=== PATIENT | female | born 1950 | race Caucasian/White ===

== ENCOUNTER 2016-10-25 07:42 | Day surgery (SDC) | payer MEDICARE, BC ==
[~2016-10-25 07:42] MED LIST: Lactated Ringers 1,000 ML IV SCH
[2016-10-25] MEDS ORDERED: fentaNYL 100 MCG/2 ML SDV ONE (07:49)
[2016-10-25] MEDS ORDERED: Propofol 200 MG/20 ML SDV ONE ×2 (07:49→09:30)
[2016-10-25] MEDS ORDERED: Midazolam 1 MG/ML 2 ML SDV ONE (07:50)
[2016-10-25] MEDS ORDERED: Lactated Ringers 1,000 ML IV SCH (08:30)
[2016-10-25] MEDS ORDERED: Lidocaine 1% 2 ML ONE (09:00)
[2016-10-25 11:07] VITALS: BP 109/80
--- NOTE | 2016-10-28 08:02 | OR ---
DATE OF PROCEDURE: 10/25/2016 PREOPERATIVE DIAGNOSES: 1. History of colon polyps. 2. Abdominal pain. 3. Colitis, last year. POSTOPERATIVE DIAGNOSES: 1. History of colon polyps. 2. Abdominal pain. 3. Colitis, last year. 4. Small colon polyps, 60 cm from anal verge. PROCEDURE PERFORMED: Colonoscopy to the cecum with random colonic biopsies and biopsy resection of polyps 60 cm from the anal verge. ANESTHESIA: IV anesthesia with monitored anesthesia care. INDICATION: This 65-year-old white female was referred for a colonoscopy. She says her last colonoscopic exam was done in 2007, apparently polyp was obtained then. She says last year she was in the hospital with colitis. A colonoscopy has not yet been done. She is now agreeable to this. She also complains of abdominal pain. I counseled her for a colonoscopy with possible biopsy and/or a polypectomy including risks and alternatives, and she gave her informed consent to proceed. DESCRIPTION OF PROCEDURE: The patient was placed in the left lateral decubitus position. IV anesthesia was administered by the Anesthesia Service. Time-out was held. A rectal exam was performed, which was unremarkable. The flexible video Olympus colonoscope was introduced through her anus, up her rectum, and out her colon all the way to the cecum. Once the cecum was reached, the scope was slowly withdrawn examining the mucosa throughout. The mucosa appeared unremarkable. Because of her episode of colitis, we did obtain random colonic biopsies throughout the entire colon. We encountered a small polyp 60 cm from the anal verge which was removed with the biopsy forceps. We attempted to retroflex the scope in the rectum, where it could not be done. The scope was straightened and removed. She tolerated the procedure well. Tony Torres MD /[id number] KYA
== END 2016-10-25 11:05 | disposition home or self-care (01) ==
LOC: JP.SDS 07:42
PROVIDERS: ATTEND Surgery
DX: D12.6 Benign neoplasm of colon, unspecified (principal); K51.00 Ulcerative (chronic) pancolitis without complications; J44.9 Chronic obstructive pulmonary disease, unspecified; I10 Essential (primary) hypertension; E78.5 Hyperlipidemia, unspecified; E11.9 Type 2 diabetes mellitus without complications; Z88.2 Allergy status to sulfonamides; Z88.1 Allergy status to other antibiotic agents; Z88.8 Allergy status to other drugs, medicaments and biological substances; Z86.010 Personal history of colon polyps
CPT/HCPCS: 45380; 82962; 88305; J2250; J2704; J3010

== ENCOUNTER 2016-11-23 13:35 | Inpatient (IN) | payer MEDICARE, BC ==
[2016-11-23] MEDS ORDERED: Albuterol/Ipratropium 3.0-0.5 MG/3 ML Neb Soln NEB ONE (14:07)
--- NOTE | 2016-11-23 14:39 | EDM.PDOC ---
ED HISTORY OF PRESENT ILLNESS - General Chief Complaint: Asthma Stated Complaint: TROUBLE BREATHING, FLUID RETENTION Time Seen by Provider: 11/23/16 14:29 Source: Reports: Patient, RN notes reviewed History Limitations: Reports: No limitations - History of Present Illness INITIAL COMMENTS - FREE TEXT/NARRATIVE: 65-year-old female presents to emergency department a complaint of shortness of breath, she states over the last week or so she's had more weight gain become more short of breath has also developed some wheezing was evaluated by her primary care provider started on metolazone and Lasix, denies any fevers - Related Data Allergies/ADRs: Allergies Allergy/AdvReac Type Severity Reaction Status Date / Time Sulfa (Sulfonamide Allergy Rash Verified 11/23/16 17:29 Antibiotics) amoxicillin trihydrate AdvReac Diarrhea Verified 11/23/16 17:29 [From Augmentin] clindamycin AdvReac Diarrhea Verified 11/23/16 17:29 potassium clavulanate AdvReac Diarrhea Verified 11/23/16 17:29 [From Augmentin] Home Meds: Home Meds Acetaminophen with Codeine [Acetaminophen-Cod #3] 1 - 2 each PO Q6H PRN [History] Albuterol [Ventolin HFA] 2 puff INH Q4H PRN 10/07/13 [History] Gabapentin 1,200 mg PO TID 10/07/13 [History] Lisinopril/Hydrochlorothiazide [Lisinopril-Hctz 10-12.5 mg Tab] 1 each PO DAILY 10/07/13 [History] glipiZIDE [Glipizide ER] 10 mg PO BID 10/07/13 [History] Aspirin [Mervin Chewable Aspirin] 81 mg PO DAILY 10/01/14 [History] Albuterol [Proventil] 1 ampule IH Q4H PRN 12/17/14 [History] Codeine/guaiFENesin [Robitussin AC] 10 ml PO Q6H PRN 09/13/15 [History] Ibuprofen 800 mg PO Q6HR PRN 09/13/15 [History] Tiotropium [Spiriva HandiHaler] 1 cap INH DAILY 09/13/15 [History] Cholecalciferol (Vitamin D3) [Vitamin D3] 2,000 unit PO DAILY 09/14/15 [History] Budesonide [Pulmicort] 2 ml NEB BID 10/17/16 [History] Furosemide [Lasix] 20 mg PO DAILY 10/17/16 [History] Insulin Glargine,Hum.Rec.Anlog [Lantus Solostar] 20 units SUBCUT BEDTIME [History] Lidocaine 5% [Lidoderm 5%] 1 patch TOP Q24H 10/17/16 [History] Omeprazole 40 mg PO DAILY 10/17/16 [History] Pravastatin Sodium [Pravastatin (Pravachol)] 40 mg PO BEDTIME 10/17/16 [History] guaiFENesin [Mucinex] 1,200 mg PO DAILY 10/17/16 [History] Furosemide [Furosemide] 11/23/16 [History] Metolazone [Metolazone] 11/23/16 [History] Past Medical History HEENT History: Reports: Cataract Cardiovascular History: Reports: High cholesterol, Hypertension, SOB on exertion Respiratory History: Reports: Bronchitis, recurrent, COPD, Pneumonia, recurrent , SOB, Other (see below) Other Respiratory History: Uses home O2 at night. Gastrointestinal History: Reports: Colon polyp Genitourinary History: Reports: Other (see below) Other Genitourinary History: stress incontinence [employer] History: Reports: Musculoskeletal History: Reports: Arthritis, Back pain, chronic, Gout Neurological History: Reports: Neuropathy, diabetic, Other (see below) Other Neuro History: low back discs perforated Psychiatric History: Reports: Depression Endocrine/Metabolic History: Reports: Diabetes, type II, Obesity/BMI 30+ Hematologic History: Reports: Anemia Dermatologic History: Reports: Other (see below) Other Dermatologic History: dry skin elbows - Infectious Disease History Infectious Disease History: Reports: Chicken pox - Past Surgical History HEENT Surgical History: Reports: Cataract surgery, Tonsillectomy GI Surgical History: Reports: Colonoscopy Female Surgical History: Reports: Salpingo-oophorectomy, Other (see below) Other Female Surgeries/Procedures: uterine fibroid tumor removed Social & Family History - Family History Family Medical History: Noncontributory GI: Reports: Other (see below) (no family hx of colitis) - Tobacco Use Smoking Status *Q: Current Every Day Smoker Years of Tobacco use: 50 Packs/Tins Daily: 1 Used Tobacco, but Quit: No Month Tobacco Last Used: September Second Hand Smoke Exposure: Yes - Caffeine Use Caffeine Use: Reports: Coffee, Tea - Alcohol Use Days Per Week of Alcohol Use: 0 - Recreational Drug Use Recreational Drug Use: No ED ROS GENERAL - Review of Systems Review Of Systems: See Below Constitutional: Reports: weight gain HEENT: Reports: No symptoms Respiratory: Reports: Shortness of Breath, Wheezing. Denies: Cough, Sputum Cardiovascular: Reports: Dyspnea on exertion, Edema. Denies: Chest pain GI/Abdominal: Reports: Distension : Reports: no symptoms Musculoskeletal: Reports: no symptoms ED EXAM, GENERAL - Physical Exam Exam: See Below Exam Limited By: No limitations General Appearance: alert, WD/WN, no apparent distress Head: atraumatic, normocephalic Neck: normal inspection, supple, non-tender, full range of motion Respiratory/Chest: no respiratory distress, no accessory muscle use, wheezing. No: respiratory distress Cardiovascular: regular rate, rhythm, no rub GI/Abdominal: normal bowel sounds, soft, distended Extremities: pedal edema Course - Vital Signs Last Recorded V/S: Last Vital Signs Temp 98.6 F 11/23/16 14:03 Pulse 82 11/23/16 16:26 Resp 21 H 11/23/16 16:26 BP 111/56 L 11/23/16 16:26 Pulse Ox 92 L 11/23/16 16:26 - Orders/Labs/Meds Orders: Active Orders 24 hr Category Date Time Status Cardiac Monitoring [RC] .As Directed Care 11/23/16 14:35 Active Peripheral IV Care [RC] . DIRECTED Care 11/23/16 16:56 Active RT Aerosol Therapy [RC] ASDIRECTED Care 11/23/16 14:07 Active Abdomen 1V Flat [CR] Stat Exams 11/23/16 14:36 Taken Abdomen Pelvis w Cont [CT] Stat Exams 11/23/16 16:56 Taken Chest 2V [CR] Stat Exams 11/23/16 14:36 Taken Iopamidol [Isovue-300 (61%)] Med 11/23/16 17:22 Active 129 ml IV . DIRECTED PRN Sodium Chloride 0.9% [Normal Saline] 1,000 ml Med 11/23/16 17:00 Active IV ASDIRECTED Sodium Chloride 0.9% [Normal Saline] 79 ml Med 11/23/16 17:30 Active IV ASDIRECTED Sodium Chloride 0.9% [Saline Flush] Med 11/23/16 16:56 Active 10 ml FLUSH ASDIRECTED PRN Sodium Chloride 0.9% [Saline Flush] Med 11/23/16 17:22 Active 10 ml FLUSH ONETIME PRN Peripheral IV Insertion Adult [OM.PC] Urgent Oth 11/23/16 16:56 Ordered Medication Orders Sodium Chloride (Normal Saline) 1,000 mls @ 500 mls/hr IV ASDIRECTED MEGAN Last Admin: 11/23/16 17:52 Dose: 500 mls/hr Sodium Chloride (Normal Saline) 79 mls @ 3.5 mls/sec IV ASDIRECTED MEGAN Last Admin: 11/23/16 17:41 Dose: 3.5 mls/sec Iopamidol (Isovue-300 (61%)) 129 ml IV . DIRECTED PRN PRN Reason: RADIOLOGY EXAM Stop: 11/24/16 17:23 Last Admin: 11/23/16 17:41 Dose: 109 ml Sodium Chloride (Saline Flush) 10 ml FLUSH ASDIRECTED PRN PRN Reason: Keep Vein Open Sodium Chloride (Saline Flush) 10 ml FLUSH ONETIME PRN PRN Reason: per radiology protocol Last Admin: 11/23/16 17:53 Dose: 10 ml Admin: 11/23/16 17:41 Dose: 10 ml Labs: Laboratory Tests 11/23/16 11/23/16 11/23/16 Range/Units 14:54 14:54 14:54 WBC 11.7 H (4.5-11.0) K/uL RBC 4.34 (3.30-5.50) M/uL Hgb 13.4 (12.0-15.0) g/dL Hct 38.9 (36.0-48.0) % MCV 90 (80-98) fL MCH 31 (27-31) pg MCHC 34 (32-36) % Plt Count 242 (150-400) K/uL Neut % (Auto) 66 (36-66) % Lymph % (Auto) 24 (24-44) % [place] % (Auto) 7 H (2-6) % Eos % (Auto) 3 (2-4) % Baso % (Auto) 1 (0-1) % PT (9.5-12.0) sec INR (0.80-1.20) D-Dimer, Quantitative (0.0-400.0) ng/mL Sodium 128 L (140-148) mmol/L Potassium 3.0 L (3.6-5.2) mmol/L Chloride 85 L (100-108) mmol/L Carbon Dioxide 37 H (21-32) mmol/L Anion Gap 9.0 (5.0-14.0) mmol/L BUN 19 H D (7-18) mg/dL Creatinine 0.7 (0.6-1.0) mg/dL Est Cr Clr Drug Dosing 65.40 mL/min Estimated GFR (MDRD) > 60 (>60) Glucose 104 (74-106) mg/dL Lactic Acid 1.0 (0.4-2.0) mmol/L Calcium 8.9 (8.5-10.1) mg/dL Total Bilirubin 0.3 (0.2-1.0) mg/dL AST 21 (15-37) U/L ALT 25 (12-78) U/L Alkaline Phosphatase 88 (46-116) U/L Troponin I < 0.017 (0.000-0.056) ng/mL Ezl-[id number]-[id number] Pept 24 (5-125) pg/mL Total Protein 7.3 (6.4-8.2) g/dL Albumin 3.4 (3.4-5.0) g/dL Globulin 3.9 H (2.3-3.5) g/dL Albumin/Globulin Ratio 0.9 L (1.2-2.2) 11/23/16 11/23/16 Range/Units 16:17 16:55 WBC (4.5-11.0) K/uL RBC (3.30-5.50) M/uL Hgb (12.0-15.0) g/dL Hct (36.0-48.0) % MCV (80-98) fL MCH (27-31) pg MCHC (32-36) % Plt Count (150-400) K/uL Neut % (Auto) (36-66) % Lymph % (Auto) (24-44) % [place] % (Auto) (2-6) % Eos % (Auto) (2-4) % Baso % (Auto) (0-1) % PT 9.3 L (9.5-12.0) sec INR 0.88 (0.80-1.20) D-Dimer, Quantitative 150 (0.0-400.0) ng/mL Sodium (140-148) mmol/L Potassium (3.6-5.2) mmol/L Chloride (100-108) mmol/L Carbon Dioxide (21-32) mmol/L Anion Gap (5.0-14.0) mmol/L BUN (7-18) mg/dL Creatinine (0.6-1.0) mg/dL Est Cr Clr Drug Dosing mL/min Estimated GFR (MDRD) (>60) Glucose (74-106) mg/dL Lactic Acid (0.4-2.0) mmol/L Calcium (8.5-10.1) mg/dL Total Bilirubin (0.2-1.0) mg/dL AST (15-37) U/L ALT (12-78) U/L Alkaline Phosphatase (46-116) U/L Troponin I (0.000-0.056) ng/mL Elg-F-Ncvhbtgmvas Pept (5-125) pg/mL Total Protein (6.4-8.2) g/dL Albumin (3.4-5.0) g/dL Globulin (2.3-3.5) g/dL Albumin/Globulin Ratio (1.2-2.2) Meds: Medications Generic Name Dose Route Start Last Admin Trade Name Freq PRN Reason Stop Dose Admin Sodium Chloride 1,000 mls @ 500 mls/hr 11/23/16 17:00 11/23/16 17:52 Normal Saline IV 500 mls/hr ASDIRECTED MEGAN Administration Sodium Chloride 79 mls @ 3.5 mls/sec 11/23/16 17:30 11/23/16 17:41 Normal Saline IV 3.5 mls/sec ASDIRECTED MEGAN Administration Iopamidol 129 ml 11/23/16 17:22 11/23/16 17:41 Isovue-300 (61%) IV 11/24/16 17:23 109 ml . DIRECTED PRN Administration RADIOLOGY EXAM Sodium Chloride 10 ml 11/23/16 16:56 Saline Flush FLUSH ASDIRECTED PRN Keep Vein Open Sodium Chloride 10 ml 11/23/16 17:22 11/23/16 17:53 Saline Flush FLUSH 10 ml ONETIME PRN Administration per radiology protocol Discontinued Medications Generic Name Dose Route Start Last Admin Trade Name Freq PRN Reason Stop Dose Admin Albuterol/Ipratropium 3 ml 11/23/16 14:07 11/23/16 14:19 Duoneb 3.0-0.5 Mg/3 Ml NEB 11/23/16 14:08 3 ml ONETIME ONE Administration Departure - Departure Time of Disposition: 18:54 Disposition: Admitted As Inpatient 65 Condition: fair Clinical Impression: Hypoxia Forms: ED Department Discharge - My Orders Last 24 Hours: My Active Orders 11/23/16 14:07 RT Aerosol Therapy [RC] ASDIRECTED 11/23/16 14:35 Cardiac Monitoring [RC] .As Directed 11/23/16 14:36 Abdomen 1V Flat [CR] Stat Chest 2V [CR] Stat 11/23/16 16:56 Peripheral IV Care [RC] . DIRECTED Abdomen Pelvis w Cont [CT] Stat Sodium Chloride 0.9% [Saline Flush] 10 ml FLUSH ASDIRECTED PRN Peripheral IV Insertion Adult [OM.PC] Urgent 11/23/16 17:00 Sodium Chloride 0.9% [Normal Saline] 1,000 ml IV ASDIRECTED 11/23/16 17:22 Iopamidol [Isovue-300 (61%)] 129 ml IV . DIRECTED PRN Sodium Chloride 0.9% [Saline Flush] 10 ml FLUSH ONETIME PRN 11/23/16 17:30 Sodium Chloride 0.9% [Normal Saline] 79 ml IV ASDIRECTED - Assessment/Plan Last 24 Hours: My Active Orders 11/23/16 14:07 RT Aerosol Therapy [RC] ASDIRECTED 11/23/16 14:35 Cardiac Monitoring [RC] .As Directed 11/23/16 14:36 Abdomen 1V Flat [CR] Stat Chest 2V [CR] Stat 11/23/16 16:56 Peripheral IV Care [RC] . DIRECTED Abdomen Pelvis w Cont [CT] Stat Sodium Chloride 0.9% [Saline Flush] 10 ml FLUSH ASDIRECTED PRN Peripheral IV Insertion Adult [OM.PC] Urgent 11/23/16 17:00 Sodium Chloride 0.9% [Normal Saline] 1,000 ml IV ASDIRECTED 11/23/16 17:22 Iopamidol [Isovue-300 (61%)] 129 ml IV . DIRECTED PRN Sodium Chloride 0.9% [Saline Flush] 10 ml FLUSH ONETIME PRN 11/23/16 17:30 Sodium Chloride 0.9% [Normal Saline] 79 ml IV ASDIRECTED Plan: Assessment Acuity = acute Site and laterality = hypoxia compensated pH with known history of chronic obstructive pulmonary disease Etiology =unclear etiology Manifestations = dyspnea Location of injury = home Lab values = WBC of 11.7 consistent with leukocytosis INR normal at 0.8 d-dimer normal at 150 sodium low at 128 consistent hyponatremia potassium low at 2.0 consistent hypokalemia troponin within normal limits chest x-ray I did review films myself I cannot appreciate any acute process, the official read from radiology is pending, CT scan of the abdomen shows no acute process however she does have a 9 x 8 cm myoma previously seen Plan discussed case with hospitalist strategic communications specialist he agreed to come and evaluate patient in the ED for admission Patient was in agreement with the plan all questions were answered This note was dictated using [employer] voice recognition software please call with any questions.
[2016-11-23] MEDS ORDERED: Sodium Chloride 0.9% 10 ML Syringe FLUSH PRN (16:56)
[2016-11-23] MEDS ORDERED: Sodium Chloride 0.9% 1,000 ML IV SCH (17:00)
[2016-11-23] MEDS ORDERED: Iopamidol 612 MG/ML 150 ML Bottle IV PRN (17:22)
[2016-11-23] MEDS: Sodium Chloride 0.9% 10 ML Syringe FLUSH PRN ×2 (17:41→17:53)
[2016-11-23] MEDS ORDERED: methylPREDNISolone Sodium Succinate 125 MG/2 ML SDV IVPUSH ONE (19:46)
--- NOTE | 2016-11-23 20:01 | PCM.HP ---
H&P History of Present Illness - General Date of Service: 11/23/16 Admit Problem/Dx: Admission Diagnosis/Problem Admission Diagnosis/Problem Acute exacerbation of chronic obstructive airways disease Source of Information: Patient, Family, Provider History Limitations: Reports: No limitations - History of Present Illness Initial Comments - Free Text/Narative: Zainab presents to the emergency room today with 2 days of progressive shortness of breath. 2 days ago shortness of breath was mild and associated with an increase in her cough as well as a change from clear to yellow sputum. She had subjective fevers and some chills but symptoms were mild so she did not seek medical attention. Yesterday symptoms have progressed to the point that she was short of breath with even minimal exertion but symptoms were not yet severe enough to seek attention. Her cough has increased since that time and her shortness of breath now occurs with anything more than rest. She has not had any difficulties with chest pain. She does think she's been doing some wheezing. She has been using her nebulizer 3 times a day with temporary relief. She normally uses oxygen only at night but has been using it during the day since yesterday morning. Most recent antibiotics were used more than 2 weeks ago and she did feel better after being on antibiotics for bronchitis. She's not aware of any sick contacts. Her blood sugars have been running high with the exception of the last few days where she has not had much to eat. She has noticed persistence of her lower extremity edema despite adjustments in her diuretics. She does not complain of orthopnea or PND but does have a cough when she lays down. Workup in the emergency room has revealed low sodium, low potassium and significant wheezing. His hypoxic with activity and not safe for outpatient management. She'll be admitted for management of bronchitis and a COPD exacerbation. - Related Data Allergies/Adverse Reactions: Allergies Allergy/AdvReac Type Severity Reaction Status Date / Time Sulfa (Sulfonamide Allergy Rash Verified 11/23/16 17:29 Antibiotics) amoxicillin trihydrate AdvReac Diarrhea Verified 11/23/16 17:29 [From Augmentin] clindamycin AdvReac Diarrhea Verified 11/23/16 17:29 potassium clavulanate AdvReac Diarrhea Verified 11/23/16 17:29 [From Augmentin] Home Medications: Home Meds Acetaminophen with Codeine [Acetaminophen-Cod #3] 1 - 2 each PO Q6H PRN [History] Albuterol [Ventolin HFA] 2 puff INH Q4H PRN 10/07/13 [History] Gabapentin 1,200 mg PO TID 10/07/13 [History] Lisinopril/Hydrochlorothiazide [Lisinopril-Hctz 10-12.5 mg Tab] 1 each PO DAILY 10/07/13 [History] glipiZIDE [Glipizide ER] 10 mg PO BID 10/07/13 [History] Aspirin [Mervin Chewable Aspirin] 81 mg PO DAILY 10/01/14 [History] Albuterol [Proventil] 1 ampule IH Q4H PRN 12/17/14 [History] Codeine/guaiFENesin [Robitussin AC] 10 ml PO Q6H PRN 09/13/15 [History] Ibuprofen 800 mg PO Q6HR PRN 09/13/15 [History] Tiotropium [Spiriva HandiHaler] 1 cap INH DAILY 09/13/15 [History] Cholecalciferol (Vitamin D3) [Vitamin D3] 2,000 unit PO DAILY 09/14/15 [History] Budesonide [Pulmicort] 2 ml NEB BID 10/17/16 [History] Furosemide [Lasix] 20 mg PO DAILY 10/17/16 [History] Insulin Glargine,Hum.Rec.Anlog [Lantus Solostar] 20 units SUBCUT BEDTIME [History] Lidocaine 5% [Lidoderm 5%] 1 patch TOP Q24H 10/17/16 [History] Omeprazole 40 mg PO DAILY 10/17/16 [History] Pravastatin Sodium [Pravastatin (Pravachol)] 40 mg PO BEDTIME 10/17/16 [History] guaiFENesin [Mucinex] 1,200 mg PO DAILY 10/17/16 [History] Furosemide [Furosemide] 11/23/16 [History] Metolazone [Metolazone] 11/23/16 [History] Past Medical History HEENT History: Reports: Cataract Cardiovascular History: Reports: High cholesterol, Hypertension, SOB on exertion Respiratory History: Reports: Bronchitis, recurrent, COPD, Pneumonia, recurrent , SOB, Other (see below) Other Respiratory History: Uses home O2 at night. Gastrointestinal History: Reports: Colon polyp Genitourinary History: Reports: Other (see below) Other Genitourinary History: stress incontinence [employer] History: Reports: Musculoskeletal History: Reports: Arthritis, Back pain, chronic, Gout Neurological History: Reports: Neuropathy, diabetic, Other (see below) Other Neuro History: low back discs perforated Psychiatric History: Reports: Depression Endocrine/Metabolic History: Reports: Diabetes, type II, Obesity/BMI 30+ Hematologic History: Reports: Anemia Dermatologic History: Reports: Other (see below) Other Dermatologic History: dry skin elbows - Infectious Disease History Infectious Disease History: Reports: Chicken pox - Past Surgical History HEENT Surgical History: Reports: Cataract surgery, Tonsillectomy GI Surgical History: Reports: Colonoscopy Female Surgical History: Reports: Salpingo-oophorectomy, Other (see below) Other Female Surgeries/Procedures: uterine fibroid tumor removed Social & Family History - Family History Family Medical History: Noncontributory GI: Reports: Other (see below) (no family hx of colitis) - Tobacco Use Smoking Status *Q: Current Every Day Smoker Years of Tobacco use: 50 Packs/Tins Daily: 1 Used Tobacco, but Quit: No Month Tobacco Last Used: September Second Hand Smoke Exposure: Yes - Caffeine Use Caffeine Use: Reports: Coffee, Tea - Alcohol Use Days Per Week of Alcohol Use: 0 - Recreational Drug Use Recreational Drug Use: No H&P Review of Systems - Review of Systems: Review Of Systems: See Below Free Text/Narrative: A complete 12 point review of systems was obtained. Pertinent positives and negatives are noted in the history of present illness. All other systems were reviewed and were negative except as noted. Exam - Exam Exam: See Below - Vital Signs Vital Signs: Last Vital Signs Temp 37.0 C 11/23/16 14:03 Pulse 82 11/23/16 16:26 Resp 21 H 11/23/16 16:26 BP 111/56 L 11/23/16 16:26 Pulse Ox 92 L 11/23/16 16:26 Weight: 84.822 kg - Exam Quality Assessment: supplemental oxygen. No: urinary catheter General: alert, oriented, cooperative, mild distress HEENT: Conjunctiva clear, Normal nasal septum. No: Mucosa moist & pink (dry), Scleral icterus Neck: supple, trachea midline. No: lymphadenopathy, JVD, thyromegaly Lungs: Wheezing (Moderate expiratory wheezing). No: Normal respiratory effort ( Increased work of breathing), Crackles Cardiovascular: regular rate, regular rhythm. No: systolic murmur Abdomen: normal bowel sounds, soft. No: distention, tenderness, mass Back Exam: normal inspection, full range of motion Extremities: normal pulses, edema (Mild pitting ankle edema). No: cyanosis Peripheral Pulses: 2+: dorsalis pedis (L), dorsalis pedis (R) Skin: warm, dry, intact. No: rash Neuro Extensive - Mental Status: alert, oriented x3, nl response to commands Neuro Extensive - Motor, Sensory, Reflexes: CN II-XII intact. No: dysarthria, abnormal motor, tremor Psychiatric: alert, normal affect - Patient Data Lab Results last 24 hrs: Laboratory Results - last 24 hr 11/23/16 11/23/16 11/23/16 Range/Units 14:54 14:54 14:54 WBC 11.7 H (4.5-11.0) K/uL RBC 4.34 (3.30-5.50) M/uL Hgb 13.4 (12.0-15.0) g/dL Hct 38.9 (36.0-48.0) % MCV 90 (80-98) fL MCH 31 (27-31) pg MCHC 34 (32-36) % Plt Count 242 (150-400) K/uL Neut % (Auto) 66 (36-66) % Lymph % (Auto) 24 (24-44) % Wake % (Auto) 7 H (2-6) % Eos % (Auto) 3 (2-4) % Baso % (Auto) 1 (0-1) % PT (9.5-12.0) sec INR (0.80-1.20) D-Dimer, Quantitative (0.0-400.0) ng/mL Sodium 128 L (140-148) mmol/L Potassium 3.0 L (3.6-5.2) mmol/L Chloride 85 L (100-108) mmol/L Carbon Dioxide 37 H (21-32) mmol/L Anion Gap 9.0 (5.0-14.0) mmol/L BUN 19 H D (7-18) mg/dL Creatinine 0.7 (0.6-1.0) mg/dL Est Cr Clr Drug Dosing 65.40 mL/min Estimated GFR (MDRD) > 60 (>60) Glucose 104 (74-106) mg/dL Lactic Acid 1.0 (0.4-2.0) mmol/L Calcium 8.9 (8.5-10.1) mg/dL Total Bilirubin 0.3 (0.2-1.0) mg/dL AST 21 (15-37) U/L ALT 25 (12-78) U/L Alkaline Phosphatase 88 (46-116) U/L Troponin I < 0.017 (0.000-0.056) ng/mL [id number] Pept 24 (5-125) pg/mL Total Protein 7.3 (6.4-8.2) g/dL Albumin 3.4 (3.4-5.0) g/dL Globulin 3.9 H (2.3-3.5) g/dL Albumin/Globulin Ratio 0.9 L (1.2-2.2) 11/23/16 11/23/16 Range/Units 16:17 16:55 WBC (4.5-11.0) K/uL RBC (3.30-5.50) M/uL Hgb (12.0-15.0) g/dL Hct (36.0-48.0) % MCV (80-98) fL MCH (27-31) pg MCHC (32-36) % Plt Count (150-400) K/uL Neut % (Auto) (36-66) % Lymph % (Auto) (24-44) % Wake % (Auto) (2-6) % Eos % (Auto) (2-4) % Baso % (Auto) (0-1) % PT 9.3 L (9.5-12.0) sec INR 0.88 (0.80-1.20) D-Dimer, Quantitative 150 (0.0-400.0) ng/mL Sodium (140-148) mmol/L Potassium (3.6-5.2) mmol/L Chloride (100-108) mmol/L Carbon Dioxide (21-32) mmol/L Anion Gap (5.0-14.0) mmol/L BUN (7-18) mg/dL Creatinine (0.6-1.0) mg/dL Est Cr Clr Drug Dosing mL/min Estimated GFR (MDRD) (>60) Glucose (74-106) mg/dL Lactic Acid (0.4-2.0) mmol/L Calcium (8.5-10.1) mg/dL Total Bilirubin (0.2-1.0) mg/dL AST (15-37) U/L ALT (12-78) U/L Alkaline Phosphatase (46-116) U/L Troponin I (0.000-0.056) ng/mL [id number] Pept (5-125) pg/mL Total Protein (6.4-8.2) g/dL Albumin (3.4-5.0) g/dL Globulin (2.3-3.5) g/dL Albumin/Globulin Ratio (1.2-2.2) Result Diagrams: 11/23/16 14:54 11/23/16 14:54 Imaging Impressions last 24 hrs: Chest x-ray - images personally reviewed - lungs are clear with some hyperinflation. Heart size is normal. No mass, infiltrate or congestive heart failure CT scan of the abdomen and pelvis - 8 x 7 ovoid mass consistent with myoma. No change when compared to previous CT scans *Q Meaningful Use (ADM) - VTE *Q VTE Criteria *Q: - Stroke *Q Stroke Criteria *Q: - AMI *Q AMI Criteria *Q: - Problem List (1) Acute bronchitis SNOMED Code(s): 44743700 ICD Code: J20.9 - ACUTE BRONCHITIS, UNSPECIFIED Status: Acute Current Visit: Yes Qualifiers: Bronchitis organism: unspecified organism Qualified Code(s): J20.9 - Acute bronchitis, unspecified (2) Acute exacerbation of chronic obstructive pulmonary disease SNOMED Code(s): 765832830 ICD Code: J44.1 - CHRONIC OBSTRUCTIVE PULMONARY DISEASE W (ACUTE) EXACERBATION Status: Acute Current Visit: Yes (3) Diabetes mellitus type II, controlled SNOMED Code(s): 97003555 ICD Code: E11.9 - TYPE 2 DIABETES MELLITUS WITHOUT COMPLICATIONS Status: Acute Current Visit: No Qualifiers: Diabetes mellitus complication status: with neurologic complications Diabetes mellitus complication detail: with polyneuropathy Diabetes mellitus residential insulin use: without buttermilk drier operator use Qualified Code(s): E11.42 - Type 2 diabetes mellitus with diabetic polyneuropathy Problem List Initiated/Reviewed/Updated: Yes Orders Last 24hrs: Active Orders 24 hr Category Date Time Status Patient Status Manage Transfer [TRANSFER] Routine ADT 11/23/16 19:47 Ordered Cardiac Monitoring [RC] .As Directed Care 11/23/16 14:35 Active Peripheral IV Care [RC] . DIRECTED Care 11/23/16 16:56 Active RT Aerosol Therapy [RC] ASDIRECTED Care 11/23/16 14:07 Active Abdomen 1V Flat [CR] Stat Exams 11/23/16 14:36 Taken Abdomen Pelvis w Cont [CT] Stat Exams 11/23/16 16:56 Taken Chest 2V [CR] Stat Exams 11/23/16 14:36 Taken Iopamidol [Isovue-300 (61%)] Med 11/23/16 17:22 Active 129 ml IV . DIRECTED PRN Sodium Chloride 0.9% [Normal Saline] 1,000 ml Med 11/23/16 17:00 Active IV ASDIRECTED Sodium Chloride 0.9% [Normal Saline] 79 ml Med 11/23/16 17:30 Active IV ASDIRECTED Sodium Chloride 0.9% [Saline Flush] Med 11/23/16 16:56 Active 10 ml FLUSH ASDIRECTED PRN Sodium Chloride 0.9% [Saline Flush] Med 11/23/16 17:22 Active 10 ml FLUSH ONETIME PRN cefTRIAXone [Rocephin] 2 gm Med 11/23/16 20:00 Active Sodium Chloride 0.9% [Normal Saline] 50 ml IV Q24H Peripheral IV Insertion Adult [OM.PC] Urgent Oth 11/23/16 16:56 Ordered Resuscitation Status Routine Resus Stat 11/23/16 19:50 Ordered Medication Orders Sodium Chloride (Normal Saline) 1,000 mls @ 500 mls/hr IV ASDIRECTED [facility] Last Admin: 11/23/16 17:52 Dose: 500 mls/hr Sodium Chloride (Normal Saline) 79 mls @ 3.5 mls/sec IV ASDIRECTED [facility] Last Admin: 11/23/16 17:41 Dose: 3.5 mls/sec Ceftriaxone Sodium 2 gm/ (Sodium Chloride) 50 mls @ 100 mls/hr IV Q24H [facility] Iopamidol (Isovue-300 (61%)) 129 ml IV . DIRECTED PRN PRN Reason: RADIOLOGY EXAM Stop: 11/24/16 17:23 Last Admin: 11/23/16 17:41 Dose: 109 ml Sodium Chloride (Saline Flush) 10 ml FLUSH ASDIRECTED PRN PRN Reason: Keep Vein Open Sodium Chloride (Saline Flush) 10 ml FLUSH ONETIME PRN PRN Reason: per radiology protocol Last Admin: 11/23/16 17:53 Dose: 10 ml Admin: 11/23/16 17:41 Dose: 10 ml Assessment/Plan Comment:: Assessment and plan - Acute bronchitis with acute exacerbation of COPD - bacterial infection suspected. She has had recent antibiotics so we will utilize a different antibiotic approach. She has not had steroids a month and usually doesn't respond well to these medications but may cause some difficulty with her diabetes. I believe that her mild wheezing is falsely reassuring in that she actually has too much inflammation to move air well enough to cause wheezing. No strong evidence to suspect volume overload. -Ceftriaxone and azithromycin -Solu-Medrol tonight and prednisone starting in the morning -Scheduled and as needed nebulizers -Supplemental oxygen -Continue Pulmicort -Continue tiotropium -Sputum culture if able Insulin-dependent diabetes mellitus - sugars suboptimally controlled recently. Suspect contribution from recent infection and possibly progression of her diabetes. -Levemir 25 units at bedtime -Continue glipizide -Medium dose sliding scale insulin Uterine mass - 8 x 7 cm ovoid mass on the uterus probably a myoma. Previous resection of a fibroid. Hypokalemia - probably related to recent increased diuretic use. -Replace and recheck Maintenance issues - - DVT prophylaxis - enoxaparin - GI prophylaxis - PPI - Nutrition - diabetic diet - Spence catheter - not indicated CODE STATUS - DO NOT RESUSCITATE and DO NOT INTUBATE Admission justification - This patient will be admitted for inpatient services and is medically appropriate meeting medical necessity for inpatient admission as outlined in my documentation. I reasonably expect the patient will require inpatient services that span a period time over 2 midnights. I reasonably expect this patient to be discharged or transferred within 96 hours [facility]. Disposition - anticipate discharge home after the hospital stay Primary care physician - Dr Queenie Estrada M.D.
[2016-11-23] MEDS ORDERED: Acetaminophen/Codeine 300-30 MG Tab PO ONE (20:24)
[2016-11-23] MEDS: cefTRIAXone 2 GM in Sodium Chloride 0.9% 50 ML IV SCH (20:37)
[2016-11-23] MEDS ORDERED: Albuterol 0.083% 2.5 MG/3 ML Neb Soln NEB PRN (21:28)
[2016-11-23] MEDS ORDERED: Benzonatate 100 MG Cap PO PRN (21:28)
[2016-11-23] MEDS ORDERED: Ondansetron 4 MG Tab.DIS PO PRN (21:28)
[2016-11-23] MEDS ORDERED: Acetaminophen 325 MG Tab PO PRN (21:28)
[2016-11-23] MEDS ORDERED: Ibuprofen 800 MG Tab PO PRN (21:28)
[2016-11-23] MEDS ORDERED: Potassium Chloride 20 MEQ Tab.ER PO ONE (21:28)
[2016-11-23] MEDS ORDERED: Azithromycin 500 MG in Sodium Chloride 0.9% 250 ML IV SCH (21:28)
[2016-11-23] MEDS ORDERED: Gabapentin 300 MG Cap PO SCH (21:28)
[2016-11-23] MEDS ORDERED: Polyethylene Glycol 3350 Powder 17 GM Packet PO PRN (21:28)
[2016-11-23] MEDS: Albuterol/Ipratropium 3.0-0.5 MG/3 ML Neb Soln NEB SCH (22:54)
[2016-11-23] MEDS ORDERED: Gabapentin 100 MG Cap ONE (22:55)
[2016-11-23] MEDS ORDERED: Gabapentin 400 MG Cap ONE (22:57)
[2016-11-23] MEDS ORDERED: Lidocaine 5% 700 MG Patch TOP SCH (23:00)
[2016-11-23] MEDS ORDERED: LORazepam 2 MG/ML MDV IVPUSH PRN (23:27)
[2016-11-23] MEDS ORDERED: Insulin Detemir 100 Units/ML 3 ML Pen ONE (23:51)
[2016-11-23] MEDS: glipiZIDE 5 MG Tab.ER PO SCH (23:55)
[2016-11-23] MEDS: Pravastatin 20 MG Tab PO SCH (23:55)
[2016-11-23] MEDS: Insulin Aspart 100 Units/ML 3 ML Pen SUBCUT SCH (23:56)
[2016-11-24] MEDS ORDERED: Potassium Chloride 20 MEQ Tab.ER ONE (00:06)
[2016-11-24] MEDS: Albuterol/Ipratropium 3.0-0.5 MG/3 ML Neb Soln NEB SCH ×4 (07:04→20:52)
[2016-11-24] MEDS ORDERED: predniSONE 20 MG Tab PO SCH (07:30)
[2016-11-24] MEDS: Codeine/guaiFENesin 100mg-10 MG/5 ML Syrup 10 ML Cup PO PRN ×2 (07:43→19:37)
[2016-11-24] MEDS: Insulin Aspart 100 Units/ML 3 ML Pen SUBCUT SCH ×4 (07:45→21:17)
[2016-11-24] MEDS: Tiotropium Inhaler 18 MCG Inhalation Powder Cap Kit of 5 INH SCH (08:35)
[2016-11-24] MEDS: predniSONE 20 MG Tab PO SCH ×2 (08:37→17:55)
[2016-11-24] MEDS: Aspirin 81 MG Tab.Chew PO SCH (08:37)
[2016-11-24] MEDS: Furosemide 40 MG Tab PO SCH (08:37)
[2016-11-24] MEDS: Pantoprazole 40 MG Tab.CR PO SCH (08:37)
[2016-11-24] MEDS: glipiZIDE 5 MG Tab.ER PO SCH ×2 (08:38→20:44)
[2016-11-24] MEDS: Hydrochlorothiazide 12.5 MG Cap PO SCH (08:38)
[2016-11-24] MEDS: guaiFENesin 600 MG Tab.ER PO SCH (08:46)
[2016-11-24] MEDS: Enoxaparin 40 MG/0.4 ML Syringe SUBCUT SCH (08:46)
[2016-11-24] MEDS: Gabapentin 400 MG Cap PO SCH ×2 (08:47→20:43)
[2016-11-24] MEDS: Lisinopril 10 MG Tab PO SCH (08:50)
[2016-11-24] MEDS ORDERED: Lidocaine 5% 700 MG Patch TOP SCH (09:00)
[2016-11-24] MEDS ORDERED: Tiotropium Inhaler 18 MCG Inhalation Powder Cap Kit of 5 INH SCH (09:00)
[2016-11-24] MEDS: Budesonide 0.5 MG/2 ML Neb Susp NEB SCH ×2 (10:43→20:52)
[2016-11-24] MEDS: LORazepam 0.5 MG Tab PO PRN ×2 (11:21→19:25)
[2016-11-24] MEDS: Metoclopramide 5 MG Tab PO SCH ×2 (11:43→16:26)
[2016-11-24] MEDS ORDERED: Insulin Aspart 100 Units/ML 3 ML Pen SUBCUT ONE ×3 (11:53→21:06)
--- NOTE | 2016-11-24 14:34 | PCM.PN ---
- General Info Date of Service: 11/24/16 Functional Status: Reports: pain controlled, tolerating diet - Review of Systems General: Reports: Weakness Pulmonary: Reports: shortness of breath, cough Gastrointestinal: Reports: Other (Abdominal bloating) Systems Review Comment:: Mild difficulty with anxiety overnight but otherwise no acute events. She feels like she is breathing better today but has developed some abdominal bloating after eating breakfast. This is her main concern at this time and feels that is affecting her breathing. No complaints of pain chest fullness and bloating after eating. Still coughing but thinks this is decreasing. Wheezing has resolved. Blood sugars moderately elevated while on the prednisone. - Patient Data Vitals - most recent: Last Vital Signs Temp 36.8 C 11/24/16 10:24 Pulse 92 11/24/16 10:24 Resp 18 11/24/16 10:24 BP 122/67 11/24/16 08:50 Pulse Ox 90 L 11/24/16 10:24 Weight - most recent: 87.09 kg I&O - last 24 hours: Intake & Output 11/23/16 11/24/16 11/24/16 22:59 06:59 14:59 Intake Total 620 480 Output Total 200 1300 1200 Balance -200 -680 -720 Lab Results last 24 hrs: Laboratory Results - last 24 hr 11/24/16 11/24/16 Range/Units 05:39 05:39 WBC 10.3 (4.5-11.0) K/uL RBC 4.43 (3.30-5.50) M/uL Hgb 13.5 (12.0-15.0) g/dL Hct 39.9 (36.0-48.0) % MCV 90 (80-98) fL MCH 31 (27-31) pg MCHC 34 (32-36) % Plt Count 242 (150-400) K/uL Sodium 130 L (140-148) mmol/L Potassium 3.7 (3.6-5.2) mmol/L Chloride 91 L (100-108) mmol/L Carbon Dioxide 34 H (21-32) mmol/L Anion Gap 8.7 (5.0-14.0) mmol/L BUN 16 (7-18) mg/dL Creatinine 0.9 (0.6-1.0) mg/dL Est Cr Clr Drug Dosing 50.86 mL/min Estimated GFR (MDRD) > 60 (>60) Glucose 285 H (74-106) mg/dL Calcium 9.4 (8.5-10.1) mg/dL Eduard Results last 24 hrs: Microbiology 11/23/16 22:35 Gram Stain - Final Mouth - Unspecified Med Orders - Current: Current Medications Acetaminophen (Tylenol) 650 mg PO Q4H PRN PRN Reason: Pain (Mild 1-3)/fever Last Admin: 11/24/16 07:52 Dose: 650 mg Acetaminophen/Codeine Phosphate (Tylenol With Codeine No.3 300mg/30mg) 1 - 2 tab PO Q6H PRN PRN Reason: Pain Albuterol (Proventil Neb Soln) 2.5 mg NEB Q4H PRN PRN Reason: Shortness Of Breath/wheezing Albuterol/Ipratropium (Duoneb 3.0-0.5 Mg/3 Ml) 3 ml NEB QIDRT [facility] Last Admin: 11/24/16 10:43 Dose: 3 ml Aspirin (Aspirin) 81 mg PO DAILY [facility] Last Admin: 11/24/16 08:37 Dose: 81 mg Bacitracin (Bacitracin Oint) 1 gm TOP TID [facility] Benzonatate (Tessalon Perles) 100 mg PO TID PRN PRN Reason: Cough Budesonide (Pulmicort) 0.5 mg NEB BIDRT [facility] Last Admin: 11/24/16 10:43 Dose: 0.5 mg Enoxaparin Sodium (Lovenox) 40 mg SUBCUT DAILY [facility] Last Admin: 11/24/16 08:46 Dose: 40 mg Furosemide (Lasix) 40 mg PO DAILY [facility] Last Admin: 11/24/16 08:37 Dose: 40 mg Gabapentin (Neurontin) 1,200 mg PO BID [facility] Last Admin: 11/24/16 08:47 Dose: 1,200 mg Glipizide (Glucotrol Xl) 10 mg PO BID [facility] Last Admin: 11/24/16 08:38 Dose: 10 mg Guaifenesin (Mucinex) 1,200 mg PO DAILY [facility] Last Admin: 11/24/16 08:46 Dose: 1,200 mg Guaifenesin/Codeine Phosphate (Robitussin Ac) 10 ml PO Q4H PRN PRN Reason: Cough Last Admin: 11/24/16 07:43 Dose: 10 ml Hydrochlorothiazide (Hydrochlorothiazide) 12.5 mg PO DAILY [facility] Last Admin: 11/24/16 08:38 Dose: 12.5 mg Ceftriaxone Sodium 2 gm/ (Sodium Chloride) 50 mls @ 100 mls/hr IV Q24H [facility] Last Admin: 11/23/16 20:37 Dose: 100 mls/hr Azithromycin 500 mg/ Sodium (Chloride) 250 mls @ 250 mls/hr IV Q24H [facility] Insulin Aspart (Novolog) 0 unit SUBCUT QIDACANDBED [facility] PRN Reason: Protocol Insulin Detemir (Levemir) 30 unit SUBCUT BEDTIME [facility] Lidocaine (Lidoderm 5%) 700 mg TOP BEDTIME [facility] Lisinopril (Prinivil) 10 mg PO DAILY [facility] Last Admin: 11/24/16 08:50 Dose: 10 mg Lorazepam (Ativan) 0.5 mg PO Q4H PRN PRN Reason: Anxiety Last Admin: 11/24/16 11:21 Dose: 0.5 mg Metoclopramide HCl (Reglan) 5 mg PO TIDAC [facility] Last Admin: 11/24/16 11:43 Dose: 5 mg Miscellaneous Information (Remove Patch) 1 ea TRDERM DAILY [facility] Last Admin: 11/24/16 08:51 Dose: Not Given Ondansetron HCl (Zofran Odt) 4 mg PO Q6H PRN PRN Reason: Nausea able to take PO Pantoprazole Sodium (Protonix) 40 mg PO ACBREAKFAST [facility] Last Admin: 11/24/16 08:37 Dose: 40 mg Polyethylene Glycol (Miralax) 17 gm PO DAILY PRN PRN Reason: Constipation Pravastatin Sodium (Pravachol) 40 mg PO BEDTIME [facility] Last Admin: 11/23/16 23:55 Dose: 40 mg Prednisone (Prednisone) 20 mg PO BIDMEALS [facility] Last Admin: 11/24/16 08:37 Dose: 20 mg Sodium Chloride (Saline Flush) 10 ml FLUSH ASDIRECTED PRN PRN Reason: Keep Vein Open Tiotropium Mouthcard (Spiriva Handihaler) 18 mcg INH DAILYRT [facility] Last Admin: 11/24/16 08:35 Dose: 18 mcg Discontinued Medications Acetaminophen/Codeine Phosphate (Tylenol With Codeine No.3 300mg/30mg) 1 tab PO ONETIME ONE Stop: 11/23/16 20:25 Last Admin: 11/23/16 20:37 Dose: 1 tab Albuterol/Ipratropium (Duoneb 3.0-0.5 Mg/3 Ml) 3 ml NEB ONETIME ONE Stop: 11/23/16 14:08 Last Admin: 11/23/16 14:19 Dose: 3 ml Budesonide (Pulmicort) 0.5 mg NEB BIDRT [facility] Gabapentin (Neurontin) 1,200 mg PO BID [facility] Last Admin: 11/23/16 23:02 Dose: 1,200 mg Gabapentin (Neurontin) Confirm Administered Dose 300 mg .ROUTE .STK-MED ONE Stop: 11/23/16 22:56 Last Admin: 11/23/16 23:18 Dose: Not Given Gabapentin (Neurontin) Confirm Administered Dose 1,200 mg .ROUTE .STK-MED ONE Stop: 11/23/16 22:58 Last Admin: 11/23/16 23:21 Dose: Not Given Sodium Chloride (Normal Saline) 1,000 mls @ 500 mls/hr IV ASDIRECTED [facility] Last Admin: 11/23/16 17:52 Dose: 500 mls/hr Sodium Chloride (Normal Saline) 79 mls @ 3.5 mls/sec IV ASDIRECTED [facility] Last Admin: 11/23/16 17:41 Dose: 3.5 mls/sec Azithromycin 500 mg/ Sodium (Chloride) 250 mls @ 250 mls/hr IV Q24H [facility] Last Admin: 11/23/16 22:54 Dose: 250 mls/hr Insulin Aspart (Novolog) 0 unit SUBCUT QIDACANDBED [facility] PRN Reason: Protocol Last Admin: 11/24/16 12:12 Dose: Not Given Insulin Aspart (Novolog) 15 unit SUBCUT ONETIME ONE Stop: 11/24/16 11:54 Last Admin: 11/24/16 12:11 Dose: 15 unit Insulin Detemir (Levemir) 0 unit SUBCUT BEDTIME [facility] Last Admin: 11/24/16 00:00 Dose: 25 units Insulin Detemir (Levemir) Confirm Administered Dose 300 unit .ROUTE .STK-MED ONE Stop: 11/23/16 23:52 Last Admin: 11/23/16 23:57 Dose: Not Given Insulin Detemir (Levemir) 25 unit SUBCUT BEDTIME [facility] Iopamidol (Isovue-300 (61%)) 129 ml IV . DIRECTED PRN PRN Reason: RADIOLOGY EXAM Stop: 11/24/16 17:23 Last Admin: 11/23/16 17:41 Dose: 109 ml Lidocaine (Lidoderm 5%) 700 mg TOP Q24H [facility] Last Admin: 11/24/16 00:24 Dose: Not Given Lidocaine (Lidoderm 5%) 700 mg TOP DAILY [facility] Lorazepam (Ativan) 0.5 mg IVPUSH Q4H PRN PRN Reason: Anxiety Last Admin: 11/23/16 23:39 Dose: 0.5 mg Methylprednisolone Sodium Succinate (Solu-Medrol) 125 mg IVPUSH ONETIME ONE Stop: 11/23/16 19:47 Last Admin: 11/23/16 20:37 Dose: 125 mg Miscellaneous Information (Remove Patch) 1 ea TRDERM DAILY@2000 [facility] Miscellaneous Information (Remove Patch) 1 ea TRDERM BEDTIME [facility] Potassium Chloride (Klor-Con M20) 40 meq PO ONETIME ONE Stop: 11/23/16 21:29 Last Admin: 11/24/16 00:06 Dose: 40 meq Potassium Chloride (Klor-Con M20) Confirm Administered Dose 40 meq .ROUTE .STK- MED ONE Stop: 11/24/16 00:07 Last Admin: 11/24/16 00:21 Dose: Not Given Sodium Chloride (Saline Flush) 10 ml FLUSH ONETIME PRN PRN Reason: per radiology protocol Last Admin: 11/23/16 17:53 Dose: 10 ml - Exam Quality Assessment: supplemental oxygen General: alert, oriented, cooperative, mild distress Neck: supple Lungs: Clear to auscultation, Normal respiratory effort, Other (Prolonged expiratory phase) Cardiovascular: Regular Rate, Regular Rhythm Abdomen: bowel sounds present, soft, no tenderness, distension (Mild) Extremities: no edema, no cyanosis Skin: warm, dry, rash (Small area of healing excoriation left buttocks) Psy/Mental Status: alert, normal affect - Problem List & Annotations (1) Acute bronchitis SNOMED Code(s): 59780360 Code(s): J20.9 - ACUTE BRONCHITIS, UNSPECIFIED Status: Acute Current Visit: Yes Qualifiers: Bronchitis organism: unspecified organism Qualified Code(s): J20.9 - Acute bronchitis, unspecified (2) Acute exacerbation of chronic obstructive pulmonary disease SNOMED Code(s): 415311194 Code(s): J44.1 - CHRONIC OBSTRUCTIVE PULMONARY DISEASE W (ACUTE) EXACERBATION Status: Acute Current Visit: Yes (3) Diabetes mellitus type II, controlled SNOMED Code(s): 09005609 Code(s): E11.9 - TYPE 2 DIABETES MELLITUS WITHOUT COMPLICATIONS Status: Acute Current Visit: No Qualifiers: Diabetes mellitus complication status: with neurologic complications Diabetes mellitus complication detail: with polyneuropathy Diabetes mellitus prison insulin use: without termite exterminator use Qualified Code(s): E11.42 - Type 2 diabetes mellitus with diabetic polyneuropathy - Problem List Review Problem List Initiated/Reviewed/Updated: Yes - My Orders Last 24 Hours: My Active Orders 11/23/16 19:50 Resuscitation Status Routine 11/23/16 21:04 Pressure Reduction Mattress [OM.PC] Routine 11/23/16 21:28 Patient Status [ADT] Routine Diabetes Education [RC] Click to Edit Intake and Output [RC] QSHIFT Notify Provider Vital Signs [RC] ASDIRECTED Notify Provider [RC] PRN Oxygen Therapy [RC] PRN Pulse Oximetry [RC] CONTINUOUS RT Aerosol Therapy [RC] ASDIRECTED Up With Assistance [RC] ASDIRECTED VTE/DVT Education [RC] Per Unit Routine Vital Signs [RC] Q4H Acetaminophen [Tylenol] 650 mg PO Q4H PRN Albuterol [Proventil Neb Soln] 2.5 mg NEB Q4H PRN Benzonatate [Tessalon Perles] 100 mg PO TID PRN Codeine/guaiFENesin [Robitussin AC] 10 ml PO Q4H PRN Ondansetron [Zofran ODT] 4 mg PO Q6H PRN Polyethylene Glycol 3350 [MiraLAX] 17 gm PO DAILY PRN TATA Hose [Antiembolic Hose] [OM.PC] Routine 11/23/16 22:00 Albuterol/Ipratropium [DuoNeb 3.0-0.5 MG/3 ML] 3 ml NEB QIDRT 11/23/16 22:35 CULTURE RESPIRATORY + SMEAR [RM] Routine 11/23/16 22:43 Accu Check [Blood Glucose Check, Bedside] [RC] QIDACANDBED 11/23/16 23:26 Accu Check [Blood Glucose Check, Bedside] [RC] ONETIME 11/24/16 07:30 Pantoprazole [ProTONIX] 40 mg PO ACBREAKFAST 11/24/16 08:15 Tiotropium [Spiriva HandiHaler] 18 mcg INH DAILYRT 11/24/16 08:30 predniSONE 20 mg PO BIDMEALS 11/24/16 09:00 Enoxaparin [Lovenox] 40 mg SUBCUT DAILY Gabapentin [Neurontin] 1,200 mg PO BID Hydrochlorothiazide 12.5 mg PO DAILY Remove Patch 1 ea TRDERM DAILY 11/24/16 11:00 Budesonide [Pulmicort] 0.5 mg NEB BIDRT 11/24/16 11:14 LORazepam [Ativan] 0.5 mg PO Q4H PRN 11/24/16 11:30 Metoclopramide [Reglan] 5 mg PO TIDAC 11/24/16 14:33 Consult to Watch Electrician [CONS] Routine 11/24/16 15:00 Bacitracin [Bacitracin Oint] 1 gm TOP TID 11/24/16 16:30 GLUCOSE POC LAB TO COLLECT [POC] QIDACANDBED 11/24/16 17:00 Insulin Aspart [NovoLOG] See Protocol SUBCUT QIDACANDBED 11/24/16 21:00 GLUCOSE POC LAB TO COLLECT [POC] QIDACANDBED Azithromycin [Zithromax] 500 mg Sodium Chloride 0.9% [Normal Saline] 250 ml IV Q24H Insulin Detemir [Levemir] 30 unit SUBCUT BEDTIME Lidocaine 5% [Lidoderm 5%] 700 mg TOP BEDTIME 11/24/16 Dinner NPO After Midnight [Nothing per Oral After Midnight Diet] [DIET] 11/25/16 07:00 Gastric Empty Study [NM] Routine 11/25/16 07:30 GLUCOSE POC LAB TO COLLECT [POC] QIDACANDBED 11/25/16 11:30 GLUCOSE POC LAB TO COLLECT [POC] QIDACANDBED 11/25/16 16:30 GLUCOSE POC LAB TO COLLECT [POC] QIDACANDBED 11/25/16 21:00 GLUCOSE POC LAB TO COLLECT [POC] QIDACANDBED 11/26/16 07:30 GLUCOSE POC LAB TO COLLECT [POC] QIDACANDBED 11/26/16 11:30 GLUCOSE POC LAB TO COLLECT [POC] QIDACANDBED 11/26/16 16:30 GLUCOSE POC LAB TO COLLECT [POC] QIDACANDBED 11/26/16 21:00 GLUCOSE POC LAB TO COLLECT [POC] QIDACANDBED 11/27/16 07:30 GLUCOSE POC LAB TO COLLECT [POC] QIDACANDBED 11/27/16 11:30 GLUCOSE POC LAB TO COLLECT [POC] QIDACANDBED 11/27/16 16:30 GLUCOSE POC LAB TO COLLECT [POC] QIDACANDBED 11/27/16 21:00 GLUCOSE POC LAB TO COLLECT [POC] QIDACANDBED 11/28/16 07:30 GLUCOSE POC LAB TO COLLECT [POC] QIDACANDBED 11/28/16 11:30 GLUCOSE POC LAB TO COLLECT [POC] QIDACANDBED 11/28/16 16:30 GLUCOSE POC LAB TO COLLECT [POC] QIDACANDBED 11/28/16 21:00 GLUCOSE POC LAB TO COLLECT [POC] QIDACANDBED 11/29/16 07:30 GLUCOSE POC LAB TO COLLECT [POC] QIDACANDBED 11/29/16 11:30 GLUCOSE POC LAB TO COLLECT [POC] QIDACANDBED - Plan Plan:: Assessment and plan - Acute bronchitis with acute exacerbation of COPD - bacterial infection suspected and Gram stain showed numerous gram-positive cocci. Identification is pending at this point. Clinically improving with current antibiotics and steroids. -Ceftriaxone and azithromycin -Continue twice daily prednisone -Scheduled and as needed nebulizers -Supplemental oxygen -Continue Pulmicort -Continue tiotropium -Followup sputum culture Postprandial abdominal bloating - gastroparesis suspected with long-standing diabetes. Gastritis could be considered as well. Previous gallbladder workup was unremarkable but could also be considered. -Trial of metoclopramide -Gastric emptying study in the morning Insulin-dependent diabetes mellitus - sugars suboptimally controlled recently and worse now with initiation of steroids. -Levemir 30 units at bedtime -Continue glipizide -high dose sliding scale insulin Uterine mass - 8 x 7 cm ovoid mass on the uterus probably a myoma. Previous resection of a fibroid. Hypokalemia - probably related to recent increased diuretic use. Level improved today. -Labs in the morning Maintenance issues - - DVT prophylaxis - enoxaparin - GI prophylaxis - PPI - Nutrition - diabetic diet - Spence catheter - not indicated CODE STATUS - DO NOT INTUBATE but patient is agreeable to have a short trial of CPR if needed but does not want prolonged efforts Disposition - anticipate discharge home after the hospital stay Primary care physician - Dr Queenie Estrada M.D.
[2016-11-24] MEDS: Acetaminophen/Codeine 300-30 MG Tab PO PRN (15:18)
[2016-11-24] MEDS: Bacitracin Oint 28.35 GM Tube TOP SCH ×2 (16:30→21:18)
[2016-11-24] MEDS: Pravastatin 20 MG Tab PO SCH (20:44)
[2016-11-24] MEDS: Lidocaine 5% 700 MG Patch TOP SCH (20:44)
[2016-11-24] MEDS: cefTRIAXone 2 GM in Sodium Chloride 0.9% 50 ML IV SCH (20:52)
[2016-11-24] MEDS ORDERED: Insulin Detemir 100 Units/ML 3 ML Pen SUBCUT SCH ×2 (21:00)
--- NOTE | 2016-11-24 21:16 | PCM.SN ---
- Free Text/Narrative Note: time: 2103 ; call from [address] [place] [address] ; blood glucose 420 a; hyperglycemia p Insulin Novolog 15 units subcut now. continue present plan of care.
[2016-11-24] MEDS: Insulin Detemir 100 Units/ML 3 ML Pen SUBCUT SCH (21:20)
[2016-11-24] MEDS: Azithromycin 500 MG in Sodium Chloride 0.9% 250 ML IV SCH (21:28)
[2016-11-24] MEDS ORDERED: Budesonide 0.5 MG/2 ML Neb Susp NEB SCH (23:30)
[2016-11-25] MEDS: Albuterol/Ipratropium 3.0-0.5 MG/3 ML Neb Soln NEB SCH ×4 (07:10→20:22)
[2016-11-25] MEDS: Budesonide 0.5 MG/2 ML Neb Susp NEB SCH ×2 (07:11→20:26)
[2016-11-25] MEDS: Tiotropium Inhaler 18 MCG Inhalation Powder Cap Kit of 5 INH SCH (07:12)
--- NOTE | 2016-11-25 08:49 | CR ---
Chest 2V HISTORY: Chest Pain COMPARISON: 11/09/2010 FINDINGS: Probable mild linear atelectasis is noted left lung base. Lungs appear clear and normally aerated. C ardiomediastinal silhouette is within normal limits. No vascular redistribution or pleural fluid can be seen. Bony structures and soft tissues are unremarkable. IMPRESSION: Possible very mild linear atelectasis left lung base. No other acute chest abnormality is identified .
--- NOTE | 2016-11-25 08:50 | CR ---
Abdomen 1V Flat HISTORY: distention FINDINGS: Bowel gas pattern is nonspecific. No obstruction or free air is identified. No soft tissue mass, org anomegaly, or abnormal calcifications are seen. Bony structures demonstrate mild degenerative and hy pertrophic changes along the lumbar spine with slight scoliosis convex to the left. IMPRESSION: Nonspecific abdomen.
[2016-11-25] MEDS: Insulin Aspart 100 Units/ML 3 ML Pen SUBCUT SCH ×4 (08:59→21:00)
[2016-11-25] MEDS: Bacitracin Oint 28.35 GM Tube TOP SCH ×3 (09:00→20:27)
[2016-11-25] MEDS: Enoxaparin 40 MG/0.4 ML Syringe SUBCUT SCH (09:01)
[2016-11-25] MEDS: Pantoprazole 40 MG Tab.CR PO SCH (12:13)
[2016-11-25] MEDS: glipiZIDE 5 MG Tab.ER PO SCH ×2 (12:14→20:23)
[2016-11-25] MEDS: Hydrochlorothiazide 12.5 MG Cap PO SCH (12:14)
[2016-11-25] MEDS: Aspirin 81 MG Tab.Chew PO SCH (12:14)
[2016-11-25] MEDS: predniSONE 20 MG Tab PO SCH ×2 (12:14→17:55)
[2016-11-25] MEDS: Metoclopramide 5 MG Tab PO SCH ×3 (12:15→17:47)
[2016-11-25] MEDS: Furosemide 40 MG Tab PO SCH (12:15)
[2016-11-25] MEDS: Lisinopril 10 MG Tab PO SCH (12:16)
[2016-11-25] MEDS: guaiFENesin 600 MG Tab.ER PO SCH (12:16)
[2016-11-25] MEDS: Gabapentin 400 MG Cap PO SCH ×2 (12:16→20:23)
--- NOTE | 2016-11-25 14:23 | NM ---
Gastric Empty Study HISTORY: post-prandial bloating and pain, hx diabetes Gastric emptying study was obtained following oral administration of 1.03 mCi of technetium 90 9M galeas lfur colloid mixed with a standard meal of 2 scrambled eggs, 2 pieces of toast, and 60 mL of water. FINDINGS: Radiotracer activity in the stomach increases from baseline at 1, 2, and 3 hours. Activity decreases back to baseline at 4 hours. There is no significant gastric emptying during the exam. IMPRESSION: Prominent gastric retention with no significant gastric emptying observed during this ex am.
[2016-11-25] MEDS: Codeine/guaiFENesin 100mg-10 MG/5 ML Syrup 10 ML Cup PO PRN (14:35)
[2016-11-25] MEDS: Acetaminophen/Codeine 300-30 MG Tab PO PRN (14:57)
[2016-11-25] MEDS: Lidocaine 5% 700 MG Patch TOP SCH ×2 (17:49→20:23)
--- NOTE | 2016-11-25 18:14 | PCM.PN ---
- General Info Date of Service: 11/25/16 Functional Status: Reports: pain controlled, tolerating diet, ambulating, urinating - Review of Systems General: Denies: Fever, Chills Pulmonary: Reports: shortness of breath. Denies: pleuritic chest pain, cough, sputum, hemoptysis, wheezing Cardiovascular: Reports: Dyspnea on Exertion. Denies: Chest Pain, Palpitations , Orthopnea, PND, Edema, Lightheadedness Gastrointestinal: Reports: Abdominal pain. Denies: Difficulty swallowing, Nausea, Vomiting Systems Review Comment:: This patient is a 65-year-old woman who was admitted because of increased shortness of breath and hypoxia. Since admission her breathing has improved although she still has symptoms of shortness of breath with activity. After admission also reported abdominal distention and bloating with eating, GI motility scan was obtained today and shows evidence of significant gastroparesis. I discussed with her options concerning management including dietary modifications and use of Reglan. She would like to consider medical therapy overnight and we'll discuss it again in the morning. - Patient Data Vitals - most recent: Last Vital Signs Temp 98.0 F 11/25/16 15:00 Pulse 90 11/25/16 15:00 Resp 18 11/25/16 15:00 BP 109/64 11/25/16 15:00 Pulse Ox 92 L 11/25/16 15:00 Weight - most recent: 192 lb I&O - last 24 hours: Intake & Output 11/25/16 11/25/16 11/25/16 06:59 14:59 22:59 Intake Total 1000 240 Output Total 1900 Balance 1000 -1660 Eduard Results last 24 hrs: Microbiology 11/23/16 22:35 Gram Stain - Final Mouth - Unspecified Respiratory Culture - Preliminary NORMAL RESPIRATORY NUNO 1 DAY Med Orders - Current: Current Medications Acetaminophen (Tylenol) 650 mg PO Q4H PRN PRN Reason: Pain (Mild 1-3)/fever Last Admin: 11/24/16 07:52 Dose: 650 mg Acetaminophen/Codeine Phosphate (Tylenol With Codeine No.3 300mg/30mg) 1 - 2 tab PO Q6H PRN PRN Reason: Pain Last Admin: 11/25/16 14:57 Dose: 2 tab Albuterol (Proventil Neb Soln) 2.5 mg NEB Q4H PRN PRN Reason: Shortness Of Breath/wheezing Albuterol/Ipratropium (Duoneb 3.0-0.5 Mg/3 Ml) 3 ml NEB QIDRT [facility] Last Admin: 11/25/16 14:44 Dose: 3 ml Aspirin (Aspirin) 81 mg PO DAILY [facility] Last Admin: 11/25/16 12:14 Dose: 81 mg Bacitracin (Bacitracin Oint) 1 gm TOP TID [facility] Last Admin: 11/25/16 14:38 Dose: 1 applic Benzonatate (Tessalon Perles) 100 mg PO TID PRN PRN Reason: Cough Budesonide (Pulmicort) 0.5 mg NEB BIDRT [facility] Last Admin: 11/25/16 07:11 Dose: 0.5 mg Enoxaparin Sodium (Lovenox) 40 mg SUBCUT DAILY [facility] Last Admin: 11/25/16 09:01 Dose: 40 mg Furosemide (Lasix) 40 mg PO DAILY [facility] Last Admin: 11/25/16 12:15 Dose: 40 mg Gabapentin (Neurontin) 1,200 mg PO BID [facility] Last Admin: 11/25/16 12:16 Dose: 1,200 mg Glipizide (Glucotrol Xl) 10 mg PO BID [facility] Last Admin: 11/25/16 12:14 Dose: 10 mg Guaifenesin (Mucinex) 1,200 mg PO DAILY [facility] Last Admin: 11/25/16 12:16 Dose: 1,200 mg Guaifenesin/Codeine Phosphate (Robitussin Ac) 10 ml PO Q4H PRN PRN Reason: Cough Last Admin: 11/25/16 14:35 Dose: 10 ml Hydrochlorothiazide (Hydrochlorothiazide) 12.5 mg PO DAILY [facility] Last Admin: 11/25/16 12:14 Dose: 12.5 mg Ceftriaxone Sodium 2 gm/ (Sodium Chloride) 50 mls @ 100 mls/hr IV Q24H [facility] Last Admin: 11/24/16 20:52 Dose: 100 mls/hr Azithromycin 500 mg/ Sodium (Chloride) 250 mls @ 250 mls/hr IV Q24H [facility] Last Admin: 11/24/16 21:28 Dose: 250 mls/hr Insulin Aspart (Novolog) 0 unit SUBCUT QIDACANDBED [facility] PRN Reason: Protocol Last Admin: 11/25/16 17:55 Dose: 12 units Insulin Detemir (Levemir) 35 unit SUBCUT BEDTIME [facility] Last Admin: 11/24/16 21:20 Dose: 35 units Lidocaine (Lidoderm 5%) 700 mg TOP BEDTIME [facility] Last Admin: 11/25/16 17:49 Dose: 700 mg Lisinopril (Prinivil) 10 mg PO DAILY [facility] Last Admin: 11/25/16 12:16 Dose: 10 mg Lorazepam (Ativan) 0.5 mg PO Q4H PRN PRN Reason: Anxiety Last Admin: 11/24/16 19:25 Dose: 0.5 mg Miscellaneous Information (Remove Patch) 1 ea TRDERM DAILY [facility] Last Admin: 11/25/16 12:17 Dose: Not Given Ondansetron HCl (Zofran Odt) 4 mg PO Q6H PRN PRN Reason: Nausea able to take PO Pantoprazole Sodium (Protonix) 40 mg PO ACBREAKFAST [facility] Last Admin: 11/25/16 12:13 Dose: 40 mg Polyethylene Glycol (Miralax) 17 gm PO DAILY PRN PRN Reason: Constipation Pravastatin Sodium (Pravachol) 40 mg PO BEDTIME [facility] Last Admin: 11/24/16 20:44 Dose: 40 mg Prednisone (Prednisone) 20 mg PO BIDMEALS [facility] Last Admin: 11/25/16 17:55 Dose: 20 mg Sodium Chloride (Saline Flush) 10 ml FLUSH ASDIRECTED PRN PRN Reason: Keep Vein Open Tiotropium [place] (Spiriva Handihaler) 18 mcg INH DAILYRT [facility] Last Admin: 11/25/16 07:12 Dose: 18 mcg Discontinued Medications Acetaminophen/Codeine Phosphate (Tylenol With Codeine No.3 300mg/30mg) 1 tab PO ONETIME ONE Stop: 11/23/16 20:25 Last Admin: 11/23/16 20:37 Dose: 1 tab Albuterol/Ipratropium (Duoneb 3.0-0.5 Mg/3 Ml) 3 ml NEB ONETIME ONE Stop: 11/23/16 14:08 Last Admin: 11/23/16 14:19 Dose: 3 ml Budesonide (Pulmicort) 0.5 mg NEB BIDRT [facility] Gabapentin (Neurontin) 1,200 mg PO BID [facility] Last Admin: 11/23/16 23:02 Dose: 1,200 mg Gabapentin (Neurontin) Confirm Administered Dose 300 mg .ROUTE .STK-MED ONE Stop: 11/23/16 22:56 Last Admin: 11/23/16 23:18 Dose: Not Given Gabapentin (Neurontin) Confirm Administered Dose 1,200 mg .ROUTE .STK-MED ONE Stop: 11/23/16 22:58 Last Admin: 11/23/16 23:21 Dose: Not Given Sodium Chloride (Normal Saline) 1,000 mls @ 500 mls/hr IV ASDIRECTED [facility] Last Admin: 11/23/16 17:52 Dose: 500 mls/hr Sodium Chloride (Normal Saline) 79 mls @ 3.5 mls/sec IV ASDIRECTED [facility] Last Admin: 11/23/16 17:41 Dose: 3.5 mls/sec Azithromycin 500 mg/ Sodium (Chloride) 250 mls @ 250 mls/hr IV Q24H [facility] Last Admin: 11/23/16 22:54 Dose: 250 mls/hr Insulin Aspart (Novolog) 0 unit SUBCUT QIDACANDBED [facility] PRN Reason: Protocol Last Admin: 11/24/16 12:12 Dose: Not Given Insulin Aspart (Novolog) 15 unit SUBCUT ONETIME ONE Stop: 11/24/16 11:54 Last Admin: 11/24/16 12:11 Dose: 15 unit Insulin Aspart (Novolog) 20 unit SUBCUT ONETIME ONE Stop: 11/24/16 16:31 Last Admin: 11/24/16 16:23 Dose: 20 unit Insulin Aspart (Novolog) 0 unit SUBCUT ONETIME ONE Stop: 11/24/16 21:07 Last Admin: 11/24/16 21:21 Dose: 15 units Insulin Detemir (Levemir) 0 unit SUBCUT BEDTIME [facility] Last Admin: 11/24/16 00:00 Dose: 25 units Insulin Detemir (Levemir) Confirm Administered Dose 300 unit .ROUTE .STK-MED ONE Stop: 11/23/16 23:52 Last Admin: 11/23/16 23:57 Dose: Not Given Iopamidol (Isovue-300 (61%)) 129 ml IV . DIRECTED PRN PRN Reason: RADIOLOGY EXAM Stop: 11/24/16 17:23 Last Admin: 11/23/16 17:41 Dose: 109 ml Lidocaine (Lidoderm 5%) 700 mg TOP Q24H [facility] Last Admin: 11/24/16 00:24 Dose: Not Given Lidocaine (Lidoderm 5%) 700 mg TOP DAILY [facility] Lorazepam (Ativan) 0.5 mg IVPUSH Q4H PRN PRN Reason: Anxiety Last Admin: 11/23/16 23:39 Dose: 0.5 mg Methylprednisolone Sodium Succinate (Solu-Medrol) 125 mg IVPUSH ONETIME ONE Stop: 11/23/16 19:47 Last Admin: 11/23/16 20:37 Dose: 125 mg Metoclopramide HCl (Reglan) 5 mg PO TIDAC [facility] Last Admin: 11/25/16 17:47 Dose: 5 mg Miscellaneous Information (Remove Patch) 1 ea TRDERM DAILY@1999 [facility] Miscellaneous Information (Remove Patch) 1 ea TRDERM BEDTIME [facility] Potassium Chloride (Klor-Con M20) 40 meq PO ONETIME ONE Stop: 11/23/16 21:29 Last Admin: 11/24/16 00:06 Dose: 40 meq Potassium Chloride (Klor-Con M20) Confirm Administered Dose 40 meq .ROUTE .STK- MED ONE Stop: 11/24/16 00:07 Last Admin: 11/24/16 00:21 Dose: Not Given Sodium Chloride (Saline Flush) 10 ml FLUSH ONETIME PRN PRN Reason: per radiology protocol Last Admin: 11/23/16 17:53 Dose: 10 ml - Exam Quality Assessment: supplemental oxygen, DVT prophylaxis General: alert, oriented, cooperative, mild distress Lungs: Decreased breath sounds. No: Crackles, Rales, Rhonchi, Rub, Stridor, Wheezing Cardiovascular: Regular Rate, Regular Rhythm, No Murmurs Abdomen: bowel sounds present, soft, no tenderness, no distension Extremities: no edema Skin: warm, dry, intact - Problem List Review Problem List Initiated/Reviewed/Updated: Yes - My Orders Last 24 Hours: My Active Orders 11/25/16 Dinner Consistent Carbohydrate Diet [DIET] 11/26/16 08:00 Pelvis Non OB Comp [US] Urgent - Plan Plan:: Assessment and plan - Acute bronchitis with acute exacerbation of COPD - bacterial infection suspected and Gram stain showed numerous gram-positive cocci, which are growing only normal respiratory nuno. Her dose of breath has improved significantly from admission. -Ceftriaxone and azithromycin -Continue twice daily prednisone -Scheduled and as needed nebulizers -Supplemental oxygen -Continue tiotropium -Followup sputum culture -Room air assessment at rest and with activity tomorrow morning to determine if she qualifies for home oxygen Gastroparesis - gastric emptying study showed severely delayed gastric emptying -Patient is unsure if she wants to proceed with ongoing therapy with Reglan, will rediscuss in a.m. -Consider referral to gastroenterology Insulin-dependent diabetes mellitus - sugars suboptimally controlled recently and worse now with initiation of steroids. -Levemir 30 units at bedtime -Continue glipizide -high dose sliding scale insulin Uterine mass - 8 x 7 cm ovoid mass on the uterus probably a myoma. Previous resection of a fibroid. - Lizzeth ultrasound in a.m. Hypokalemia - probably related to recent increased diuretic use. Maintenance issues - - DVT prophylaxis - enoxaparin - GI prophylaxis - PPI - Nutrition - diabetic diet - Spence catheter - not indicated CODE STATUS - DO NOT INTUBATE but patient is agreeable to have a short trial of CPR if needed but does not want prolonged efforts Disposition - anticipate discharge home after the hospital stay Primary care physician - Dr Jerome
[2016-11-25] MEDS: LORazepam 0.5 MG Tab PO PRN (18:50)
[2016-11-25] MEDS: cefTRIAXone 2 GM in Sodium Chloride 0.9% 50 ML IV SCH (20:21)
[2016-11-25] MEDS: Pravastatin 20 MG Tab PO SCH (20:24)
[2016-11-25] MEDS: Azithromycin 500 MG in Sodium Chloride 0.9% 250 ML IV SCH (20:56)
[2016-11-25] MEDS: Insulin Detemir 100 Units/ML 3 ML Pen SUBCUT SCH (20:56)
[2016-11-25] MEDS ORDERED: Insulin Aspart 100 Units/ML 3 ML Pen SUBCUT ONE (21:05)
[2016-11-26] MEDS: Budesonide 0.5 MG/2 ML Neb Susp NEB SCH (07:29)
[2016-11-26] MEDS: Tiotropium Inhaler 18 MCG Inhalation Powder Cap Kit of 5 INH SCH (07:29)
[2016-11-26] MEDS: Albuterol/Ipratropium 3.0-0.5 MG/3 ML Neb Soln NEB SCH ×3 (07:29→14:37)
[2016-11-26] MEDS: Insulin Aspart 100 Units/ML 3 ML Pen SUBCUT SCH ×2 (07:42→11:58)
[2016-11-26] MEDS: Pantoprazole 40 MG Tab.CR PO SCH (07:44)
[2016-11-26] MEDS: predniSONE 20 MG Tab PO SCH (07:44)
[2016-11-26] MEDS: Aspirin 81 MG Tab.Chew PO SCH (08:08)
[2016-11-26] MEDS: Hydrochlorothiazide 12.5 MG Cap PO SCH (08:10)
[2016-11-26] MEDS: glipiZIDE 5 MG Tab.ER PO SCH (08:10)
[2016-11-26] MEDS: Lisinopril 10 MG Tab PO SCH (08:11)
[2016-11-26] MEDS: Gabapentin 400 MG Cap PO SCH (08:12)
[2016-11-26] MEDS: Enoxaparin 40 MG/0.4 ML Syringe SUBCUT SCH (08:12)
[2016-11-26] MEDS: Furosemide 40 MG Tab PO SCH (08:13)
[2016-11-26] MEDS: guaiFENesin 600 MG Tab.ER PO SCH (08:18)
--- NOTE | 2016-11-26 09:49 | US ---
Pelvis Non OB Comp HISTORY: evaluate pelvic mass seen on CT scan FINDINGS: The patient declined transvaginal evaluation. Transabdominal study demonstrates a mixed hy poechoic mass involving much of the uterine fundus. This measures approximately 7.6 x 7.2 x 6.9 cm i n size and likely correlates with a large uterine fibroid. No other uterine abnormality can be seen. Endometrial stripe cannot be well visualized. Neither ovary could be identified. There is no free f luid in the cul-de-sac. IMPRESSION: Large complex uterine mass appears most suggestive for uterine fibroid. This correlates with the CT findings of 11/23/2016. The mass can also be seen on prior CT studies dating back to 2008.
[2016-11-26] MEDS: Bacitracin Oint 28.35 GM Tube TOP SCH (10:07)
[2016-11-26 11:43] VITALS: BP 124/76
--- NOTE | 2016-11-26 13:43 | PCM.DCSUM1 ---
Discharge Summary - Hospital Course Brief History: This patient is a 65-year-old woman who was admitted through the emergency department with increased shortness of breath and hypoxia secondary to a COPD exacerbation with underlying bronchitis. - Discharge Data Discharge Date: 11/26/16 Discharge Disposition: Home, Self-Care 01 Condition: Fair - Discharge Diagnosis/Problem(s) (1) Gastroparesis SNOMED Code(s): 403992528 ICD Code: K31.84 - GASTROPARESIS Status: Acute Current Visit: Yes (2) Acute exacerbation of chronic obstructive pulmonary disease SNOMED Code(s): 898296516 ICD Code: J44.1 - CHRONIC OBSTRUCTIVE PULMONARY DISEASE W (ACUTE) EXACERBATION Status: Acute Current Visit: Yes (3) Acute bronchitis SNOMED Code(s): 25911613 ICD Code: J20.9 - ACUTE BRONCHITIS, UNSPECIFIED Status: Acute Current Visit: Yes Qualifiers: Bronchitis organism: unspecified organism Qualified Code(s): J20.9 - Acute bronchitis, unspecified (4) Diabetes mellitus type II, controlled SNOMED Code(s): 87711595 ICD Code: E11.9 - TYPE 2 DIABETES MELLITUS WITHOUT COMPLICATIONS Status: Chronic Current Visit: No Qualifiers: Diabetes mellitus complication status: with neurologic complications Diabetes mellitus complication detail: with polyneuropathy Diabetes mellitus terminal operations manager insulin use: without terminal operations manager use Qualified Code(s): E11.42 - Type 2 diabetes mellitus with diabetic polyneuropathy - Patient Summary/Data Consults: Consultations 11/24/16 14:33 Consult to Programmer [CONS] Routine Comment: Physician Instructions: diabetes and gastroparesis info Quantity: Hospital Course: This patient is a 65-year-old woman with a known history of COPD, oxygen dependent at night. Prior to admission she developed progressive increase in shortness of breath and weakness, on evaluation in the emergency department was noted to be hypoxic. Chest x-ray showed no obvious infiltrates but she was felt to have underlying bronchitis likely contributing to the COPD exacerbation. On admission she was given IV Solu-Medrol as well as IV Rocephin and azithromycin for antibiotic therapy. These interventions she improved significantly during her hospital stay but still remained hypoxic on room air. On the day of discharge she had an oxygen saturation of 87% on room air while sitting. For this reason she will be discharged to home with home oxygen 2 L per minute via nasal cannula. She will remain on prednisone 20 mg daily until her followup appointment with Dr. Jerome. Her blood sugars were monitored regularly throughout the hospital stay, sugars were elevated from baseline likely secondary to steroids used for management of her dyspnea. After admission she also reported symptoms of ongoing difficulty with upper abdominal discomfort and fullness following eating. Given her history of diabetes as well as underlying peripheral neuropathy, it was suspected that she was developing gastroparesis as the underlying cause of her symptoms. A nuclear medicine gastric emptying study was obtained and did show evidence of very poor gastric emptying over the period of 4 hours. We discussed management including dietary measures, and also medical therapy. She is agreeable to starting Reglan 5 mg 4 times daily, to see if this provides any benefit in her symptoms. I did review with her the potential side effects of this medication and she is willing to take it to see if that helps. Followup appointment will be scheduled with Dr. Jerome within one week. Activity will be as tolerated and she will follow a diabetic, low sodium, soft low fiber diet. - Patient Instructions Diet: Low Sodium, Diabetic Diet, GI Soft/Low Residue/Low Fiber Activity: As Tolerated Other/Special Instructions: Discharge to home with home oxygen, 2 L per minute via nasal cannula. Please schedule followup appointment with Dr. Jerome within one week. - Discharge Plan Prescriptions/Med Rec: Doxycycline [Vibra-Tabs] 100 mg PO Q12HR #10 tab Metoclopramide HCl [Reglan] 5 mg PO QID #120 tablet Home Medications: Home Meds Acetaminophen with Codeine [Acetaminophen-Cod #3] 1 - 2 tab PO Q6H PRN 10/07/13 [History] Albuterol [Ventolin HFA] 2 puff INH Q4H PRN 10/07/13 [History] Gabapentin 1,200 mg PO BID 10/07/13 [History] Lisinopril/Hydrochlorothiazide [Lisinopril-Hctz 10-12.5 mg Tab] 10 - 12.5 mg PO DAILY 10/07/13 [History] glipiZIDE [Glipizide ER] 10 mg PO BID 10/07/13 [History] Aspirin [Mervin Chewable Aspirin] 81 mg PO DAILY 10/01/14 [History] Albuterol [Proventil] 1 ampule IH Q4H PRN 12/17/14 [History] Codeine/guaiFENesin [Robitussin AC] 10 ml PO Q6H PRN 09/13/15 [History] Tiotropium [Spiriva HandiHaler] 1 cap INH DAILY 09/13/15 [History] Cholecalciferol (Vitamin D3) [Vitamin D3] 2,000 unit PO DAILY 09/14/15 [History] Insulin Glargine,Hum.Rec.Anlog [Lantus Solostar] 20 units SUBCUT BEDTIME [History] Lidocaine 5% [Lidoderm 5%] 1 patch TOP Q24H 10/17/16 [History] Omeprazole 40 mg PO DAILY 10/17/16 [History] Pravastatin Sodium [Pravastatin (Pravachol)] 40 mg PO BEDTIME 10/17/16 [History] guaiFENesin [Mucinex] 1,200 mg PO DAILY 10/17/16 [History] Furosemide 1 tab PO DAILY 11/23/16 [History] Metolazone 5 mg PO ASDIRECTED 11/23/16 [History] Doxycycline [Vibra-Tabs] 100 mg PO Q12HR #10 tab 11/26/16 [Rx] Metoclopramide HCl [Reglan] 5 mg PO QID #120 tablet 11/26/16 [Rx] Referrals: Joe Jerome MD [Primary Care Provider] - - Patient Data Vitals - Most Recent: Last Vital Signs Temp 97.0 F 11/26/16 11:42 Pulse 87 11/26/16 11:42 Resp 16 11/26/16 11:42 BP 124/76 11/26/16 11:42 Pulse Ox 94 L 11/26/16 11:42 Weight - Most Recent: 192 lb I&O - Last 24 hours: Intake & Output 11/25/16 11/26/16 11/26/16 22:59 06:59 14:59 Intake Total 1300 240 Output Total 1225 1700 400 Balance 75 -1700 -160 ALTAF Results - Last 24 hrs: Microbiology 11/23/16 22:35 Gram Stain - Final Mouth - Unspecified Respiratory Culture - Final NORMAL RESPIRATORY RUFINA 2 DAYS Med Orders - Current: Current Medications Acetaminophen (Tylenol) 650 mg PO Q4H PRN PRN Reason: Pain (Mild 1-3)/fever Last Admin: 11/24/16 07:52 Dose: 650 mg Acetaminophen/Codeine Phosphate (Tylenol With Codeine No.3 300mg/30mg) 1 - 2 tab PO Q6H PRN PRN Reason: Pain Last Admin: 11/25/16 14:57 Dose: 2 tab Albuterol (Proventil Neb Soln) 2.5 mg NEB Q4H PRN PRN Reason: Shortness Of Breath/wheezing Albuterol/Ipratropium (Duoneb 3.0-0.5 Mg/3 Ml) 3 ml NEB QIDRT [facility] Last Admin: 11/26/16 11:24 Dose: 3 ml Aspirin (Aspirin) 81 mg PO DAILY [facility] Last Admin: 11/26/16 08:08 Dose: 81 mg Bacitracin (Bacitracin Oint) 1 gm TOP TID [facility] Last Admin: 11/26/16 10:07 Dose: 1 applic Benzonatate (Tessalon Perles) 100 mg PO TID PRN PRN Reason: Cough Budesonide (Pulmicort) 0.5 mg NEB BIDRT [facility] Last Admin: 11/26/16 07:29 Dose: 0.5 mg Enoxaparin Sodium (Lovenox) 40 mg SUBCUT DAILY [facility] Last Admin: 11/26/16 08:12 Dose: 40 mg Furosemide (Lasix) 40 mg PO DAILY [facility] Last Admin: 11/26/16 08:13 Dose: 40 mg Gabapentin (Neurontin) 1,200 mg PO BID [facility] Last Admin: 11/26/16 08:12 Dose: 1,200 mg Glipizide (Glucotrol Xl) 10 mg PO BID [facility] Last Admin: 11/26/16 08:10 Dose: 10 mg Guaifenesin (Mucinex) 1,200 mg PO DAILY [facility] Last Admin: 11/26/16 08:18 Dose: Not Given Guaifenesin/Codeine Phosphate (Robitussin Ac) 10 ml PO Q4H PRN PRN Reason: Cough Last Admin: 11/25/16 14:35 Dose: 10 ml Hydrochlorothiazide (Hydrochlorothiazide) 12.5 mg PO DAILY [facility] Last Admin: 11/26/16 08:10 Dose: 12.5 mg Ceftriaxone Sodium 2 gm/ (Sodium Chloride) 50 mls @ 100 mls/hr IV Q24H [facility] Last Admin: 11/25/16 20:21 Dose: 100 mls/hr Azithromycin 500 mg/ Sodium (Chloride) 250 mls @ 250 mls/hr IV Q24H [facility] Last Admin: 11/25/16 20:56 Dose: 250 mls/hr Insulin Aspart (Novolog) 0 unit SUBCUT QIDACANDBED [facility] PRN Reason: Protocol Last Admin: 11/26/16 11:58 Dose: 9 units Insulin Detemir (Levemir) 35 unit SUBCUT BEDTIME [facility] Last Admin: 11/25/16 20:56 Dose: 35 units Lidocaine (Lidoderm 5%) 700 mg TOP BEDTIME [facility] Last Admin: 11/25/16 20:23 Dose: Not Given Lisinopril (Prinivil) 10 mg PO DAILY [facility] Last Admin: 11/26/16 08:11 Dose: 10 mg Lorazepam (Ativan) 0.5 mg PO Q4H PRN PRN Reason: Anxiety Last Admin: 11/25/16 18:50 Dose: 0.5 mg Miscellaneous Information (Remove Patch) 1 ea TRDERM DAILY [facility] Last Admin: 11/26/16 10:08 Dose: Not Given Ondansetron HCl (Zofran Odt) 4 mg PO Q6H PRN PRN Reason: Nausea able to take PO Pantoprazole Sodium (Protonix) 40 mg PO ACBREAKFAST [facility] Last Admin: 11/26/16 07:44 Dose: 40 mg Polyethylene Glycol (Miralax) 17 gm PO DAILY PRN PRN Reason: Constipation Pravastatin Sodium (Pravachol) 40 mg PO BEDTIME [facility] Last Admin: 11/25/16 20:24 Dose: 40 mg Prednisone (Prednisone) 20 mg PO BIDMEALS [facility] Last Admin: 11/26/16 07:44 Dose: 20 mg Sodium Chloride (Saline Flush) 10 ml FLUSH ASDIRECTED PRN PRN Reason: Keep Vein Open Tiotropium [place] (Spiriva Handihaler) 18 mcg INH DAILYRT [facility] Last Admin: 11/26/16 07:29 Dose: 18 mcg Discontinued Medications Acetaminophen/Codeine Phosphate (Tylenol With Codeine No.3 300mg/30mg) 1 tab PO ONETIME ONE Stop: 11/23/16 20:25 Last Admin: 11/23/16 20:37 Dose: 1 tab Albuterol/Ipratropium (Duoneb 3.0-0.5 Mg/3 Ml) 3 ml NEB ONETIME ONE Stop: 11/23/16 14:08 Last Admin: 11/23/16 14:19 Dose: 3 ml Budesonide (Pulmicort) 0.5 mg NEB BIDRT [facility] Gabapentin (Neurontin) 1,200 mg PO BID [facility] Last Admin: 11/23/16 23:02 Dose: 1,200 mg Gabapentin (Neurontin) Confirm Administered Dose 300 mg .ROUTE .STK-MED ONE Stop: 11/23/16 22:56 Last Admin: 11/23/16 23:18 Dose: Not Given Gabapentin (Neurontin) Confirm Administered Dose 1,200 mg .ROUTE .STK-MED ONE Stop: 11/23/16 22:58 Last Admin: 11/23/16 23:21 Dose: Not Given Sodium Chloride (Normal Saline) 1,000 mls @ 500 mls/hr IV ASDIRECTED [facility] Last Admin: 11/23/16 17:52 Dose: 500 mls/hr Sodium Chloride (Normal Saline) 79 mls @ 3.5 mls/sec IV ASDIRECTED [facility] Last Admin: 11/23/16 17:41 Dose: 3.5 mls/sec Azithromycin 500 mg/ Sodium (Chloride) 250 mls @ 250 mls/hr IV Q24H [facility] Last Admin: 11/23/16 22:54 Dose: 250 mls/hr Insulin Aspart (Novolog) 0 unit SUBCUT QIDACANDBED [facility] PRN Reason: Protocol Last Admin: 11/24/16 12:12 Dose: Not Given Insulin Aspart (Novolog) 15 unit SUBCUT ONETIME ONE Stop: 11/24/16 11:54 Last Admin: 11/24/16 12:11 Dose: 15 unit Insulin Aspart (Novolog) 20 unit SUBCUT ONETIME ONE Stop: 11/24/16 16:31 Last Admin: 11/24/16 16:23 Dose: 20 unit Insulin Aspart (Novolog) 0 unit SUBCUT ONETIME ONE Stop: 11/24/16 21:07 Last Admin: 11/24/16 21:21 Dose: 15 units Insulin Aspart (Novolog) 0 unit SUBCUT ONETIME ONE Stop: 11/25/16 21:06 Last Admin: 11/25/16 21:14 Dose: 14 units Insulin Detemir (Levemir) 0 unit SUBCUT BEDTIME [facility] Last Admin: 11/24/16 00:00 Dose: 25 units Insulin Detemir (Levemir) Confirm Administered Dose 300 unit .ROUTE .STK-MED ONE Stop: 11/23/16 23:52 Last Admin: 11/23/16 23:57 Dose: Not Given Iopamidol (Isovue-300 (61%)) 129 ml IV . DIRECTED PRN PRN Reason: RADIOLOGY EXAM Stop: 11/24/16 17:23 Last Admin: 11/23/16 17:41 Dose: 109 ml Lidocaine (Lidoderm 5%) 700 mg TOP Q24H [facility] Last Admin: 11/24/16 00:24 Dose: Not Given Lidocaine (Lidoderm 5%) 700 mg TOP DAILY [facility] Lorazepam (Ativan) 0.5 mg IVPUSH Q4H PRN PRN Reason: Anxiety Last Admin: 11/23/16 23:39 Dose: 0.5 mg Methylprednisolone Sodium Succinate (Solu-Medrol) 125 mg IVPUSH ONETIME ONE Stop: 11/23/16 19:47 Last Admin: 11/23/16 20:37 Dose: 125 mg Metoclopramide HCl (Reglan) 5 mg PO TIDAC [facility] Last Admin: 11/25/16 17:47 Dose: 5 mg Miscellaneous Information (Remove Patch) 1 ea TRDERM DAILY@1999 [facility] Miscellaneous Information (Remove Patch) 1 ea TRDERM BEDTIME [facility] Potassium Chloride (Klor-Con M20) 40 meq PO ONETIME ONE Stop: 11/23/16 21:29 Last Admin: 11/24/16 00:06 Dose: 40 meq Potassium Chloride (Klor-Con M20) Confirm Administered Dose 40 meq .ROUTE .STK- MED ONE Stop: 11/24/16 00:07 Last Admin: 11/24/16 00:21 Dose: Not Given Sodium Chloride (Saline Flush) 10 ml FLUSH ONETIME PRN PRN Reason: per radiology protocol Last Admin: 11/23/16 17:53 Dose: 10 ml *Q Meaningful Use (DIS) - VTE *Q VTE Criteria *Q: - Stroke *Q Stroke Criteria *Q: - AMI *Q AMI Criteria *Q:
== END 2016-11-26 15:00 | disposition home or self-care (01) | DRG 192 ==
LOC: JP.ED 13:35 → JP.MS 19:47
PROVIDERS: ADMIT Internal Medicine; ATTEND Hospitalist
DX: J44.0 Chronic obstructive pulmonary disease with (acute) lower respiratory infection (principal); J20.9 Acute bronchitis, unspecified; J44.1 Chronic obstructive pulmonary disease with (acute) exacerbation; E11.42 Type 2 diabetes mellitus with diabetic polyneuropathy; I10 Essential (primary) hypertension; E87.6 Hypokalemia; Z79.4 Long term (current) use of insulin; F17.210 Nicotine dependence, cigarettes, uncomplicated; Z66 Do not resuscitate; R09.02 Hypoxemia; E11.43 Type 2 diabetes mellitus with diabetic autonomic (poly)neuropathy; R06.02 Shortness of breath; K31.84 Gastroparesis; E78.00 Pure hypercholesterolemia, unspecified; Z87.01 Personal history of pneumonia (recurrent); Z99.81 Dependence on supplemental oxygen; M54.9 Dorsalgia, unspecified; G89.29 Other chronic pain; Z79.82 Long term (current) use of aspirin; Z79.52 Long term (current) use of systemic steroids; Z88.1 Allergy status to other antibiotic agents; Z88.2 Allergy status to sulfonamides; D25.9 Leiomyoma of uterus, unspecified; E66.9 Obesity, unspecified; Z68.30 Body mass index [BMI] 30.0-30.9, adult
CPT/HCPCS: 36415; 71020 ×2; 74000 ×2; 74177; 80053; 83605; 83880; 84484; 85025; 85379; 85610; 96360; 96361; 99284; 99285; J7030; J7040; J7050 ×2; J7620; 76856; 76856-26; 78264; 78264-26; 80048; 82962; 85027; 87070; 87205; 94640-76; 94762; 96365; 96375; A9270-GY; A9541; J0456; J0696; J1650; J2060; J2930